=== PATIENT | female | born 1990 ===

== ENCOUNTER 2021-03-29 12:51 | Emergency (ER) | payer OTHER ==
[~2021-03-29] VITALS: Ht 157.5 cm; Wt 82.6 kg
[~2021-03-29 12:51] MED LIST: FOLIC ACID0.4 MG; LEVSIN/SL0.125 MG SL; PROTONIX40 M1 PO
[2021-03-29] MEDS ORDERED: PERCOCET 10-321 EACH (13:34)
== END 2021-03-29 20:46 | disposition home or self-care (01) ==
LOC: ER 12:51
DX: G97.1 Other reaction to spinal and lumbar puncture (principal)